=== PATIENT | female | born 1970 | race Caucasian/White ===

== ENCOUNTER 2017-04-26 15:05 | Emergency (ER) | payer OTHER ==
[~2017-04-26] VITALS: Ht 165.1 cm; Wt 83.0 kg
[~2017-04-26 15:05] MED LIST: BACTRIM,SEPT1 TABLET PO; BLADDER MED; FLOMAX0.4 M1 PO
[2017-04-26 16:10] LABS: HEMATOCRIT 47.7 % (36.0-46.0); HEMOGLOBIN 15.7 G/DL (11.9-15.5); MCH 31.2 PG (29.0-34.0); MCHC 32.9 G/DL (30.0-36.0); MCV 94.6 FL (83-99); PLATELET COUNT 255 K/uL (156-360); RBC DIS.WIDTH-CV 13.2 % (11.8-14.6); RBC DIS.WIDTH-SD 45.9 % (39-53); RED BLOOD COUNT 5.04 M/uL (3.80-5.20); WHITE BLOOD COUNT 10.8 K/uL (4.1-10.2)
[2017-04-26 16:21] LABS: CHLORIDE 108 mEq/L (99-109); POTASSIUM 4.2 mEq/L (3.7-5.4); SODIUM 141 mEq/L (136-147)
[2017-04-26 16:23] LABS: GLUCOSE 94 mg/dL (70-99)
[2017-04-26 16:27] LABS: CREATININE 0.8 mg/dL (0.6-1.3); GFR ESTIMATE (CALCULATED) > 59 mL/min/
[2017-04-26 16:28] LABS: UREA NITROGEN (BUN) 6 mg/dL (9-23)
[2017-04-26 16:33] LABS: TROP-I INTERPRETATION NEGATIVE; TROPONIN-I < 0.01 ng/mL (0.0-0.30)
[2017-04-26 17:21] LABS: TOTAL PROTEIN 7.3 g/dL (6.4-8.3)
[2017-04-26 17:23] LABS: TOTAL BILIRUBIN 0.4 mg/dL (0.0-1.0)
[2017-04-26 17:24] LABS: ALKALINE PHOSPHATASE 77 IU/L (3-129)
[2017-04-26 17:26] LABS: AST (GOT) 14 IU/L (2-34)
[2017-04-26 17:27] LABS: ALT (GPT) 14 IU/L (3-49); DIRECT BILIRUBIN 0.2 mg/dL (0.0-0.3)
[2017-04-26 17:28] LABS: LIPASE 29 U/L (1.0-51.0)
[2017-04-26 17:34] LABS: QUANTITATIVE HCG < 4.0 MIU/ML
[2017-04-26] MEDS ORDERED: XANAX0.25 MG PO (17:43)
[2017-04-26 18:02] VITALS: BP 127/78
== END 2017-04-26 18:09 | disposition home or self-care (01) ==
LOC: EME 15:05
DX: F41.9 Anxiety disorder, unspecified (principal); R07.9 Chest pain, unspecified; J45.909 Unspecified asthma, uncomplicated; F17.200 Nicotine dependence, unspecified, uncomplicated; Z90.49 Acquired absence of other specified parts of digestive tract; Z88.1 Allergy status to other antibiotic agents
CPT/HCPCS: 71046; 80048; 80076; 83690; 84484; 84702; 85027; 93005; 99281; 99284